=== PATIENT | male | born 1970 | race Caucasian/White ===

== ENCOUNTER 2022-12-30 12:54 | Emergency (ER) | payer OTHER ==
[~2022-12-30] VITALS: Ht 185.4 cm; Wt 91.0 kg
[2022-12-30] MEDS ORDERED: ACETAMINOPHEN 325MG TABLET PO ONE (14:00)
[2022-12-30] MEDS ORDERED: IBUPROFEN 600MG TABLET PO ONE (14:00)
[2022-12-30] MEDS ORDERED: IBUP-2028 MT (16:08)
[2022-12-30 16:18] VITALS: BP 147/87
[2022-12-31] MEDS ORDERED: IBUP-2028 MT (18:10)
== END 2022-12-30 16:27 | disposition home or self-care (01) ==
LOC: ER 13:05
DX: M79.10 Myalgia, unspecified site (principal); M54.50 Low back pain, unspecified; M54.6 Pain in thoracic spine; G89.29 Other chronic pain; E11.9 Type 2 diabetes mellitus without complications; I10 Essential (primary) hypertension
CPT/HCPCS: 99283

== ENCOUNTER 2022-12-31 12:49 | Emergency (ER) | payer MEDICAID, OTHER ==
[~2022-12-31] VITALS: Ht 182.9 cm; Wt 100.0 kg
[~2022-12-31 12:49] MED LIST: IBUP-2028 MT
[2022-12-31 12:53] VITALS: BP 142/83
[2022-12-31] MEDS ORDERED: METHOCARBAMOL 500MG TABLET PO ONE (14:00)
[2022-12-31] MEDS ORDERED: KETOROLAC 30MG/ML VIAL IM ONE (14:00)
[2022-12-31] MEDS ORDERED: ACETAMINOPHEN 325MG TABLET PO ONE (14:00)
[2022-12-31] MEDS ORDERED: IBUP-2028 MT (18:10)
== END 2022-12-31 19:10 | disposition home or self-care (01) ==
LOC: ER 12:49
DX: M79.10 Myalgia, unspecified site (principal); G89.29 Other chronic pain; E11.9 Type 2 diabetes mellitus without complications; I10 Essential (primary) hypertension; Z59.00 Homelessness unspecified
CPT/HCPCS: 82962; 96372; 99283; J1885; Z7610

== ENCOUNTER 2022-12-31 18:37 | Emergency (ER) | payer MEDICAID ==
[~2022-12-31] VITALS: Ht 188 cm; Wt 99.8 kg
[2022-12-31 19:13] VITALS: BP 96/59
[2022-12-31] MEDS ORDERED: CLONIDINE 0.1MG TABLET PO PRN (20:15)
[2022-12-31 21:04] LABS: BASOPHILS % 0.9 % (0.0-2.0); HEMOGLOBIN. 12.3 g/dL (14.0-18.0); LYMPHOCYTES % 25.1 % (20.0-50.0); MEAN CORPUSCULAR VOLUME 90.3 fL (80.0-94.0); MEAN PLATELET VOLUME 6.3 fl (7.4-10.4); MONOCYTES % 6.7 % (2.0-8.0); NEUTROPHILS % 65.3 % (40.0-76.0); PLATELET 407 x1000/uL (130-400); RED BLOOD CELL COUNT 3.99 mill/uL (4.7-6.1); RED CELL DISTRIBUTION WIDTH 14.3 % (11.6-14.6)
[2022-12-31 21:14] LABS: CHLORIDE 99 mEq/L (98-107)
== END 2023-01-01 00:34 | disposition left against medical advice (07) ==
LOC: ER 18:37
DX: Z53.21 Procedure and treatment not carried out due to patient leaving prior to being seen by health care provider (principal)
CPT/HCPCS: 36415; 80053; 84484; 85025; 93005; 99281

== ENCOUNTER 2023-01-01 14:21 | Emergency (ER) | payer MEDICAID, OTHER ==
[~2023-01-01] VITALS: Ht 188 cm; Wt 95.4 kg
[2023-01-01 14:28] VITALS: BP 90/63
[2023-01-01 14:47] LABS: BASOPHILS % 0.6 % (0.0-2.0); EOSINOPHILS % 1.6 % (0.0-5.0); HEMATOCRIT. 36.2 % (42.0-52.0); HEMOGLOBIN. 12.4 g/dL (14.0-18.0); LYMPHOCYTES % 22.2 % (20.0-50.0); MEAN CORPUSCULAR HEMOGLOBIN 30.9 pg (28.0-32.0); MEAN CORPUSCULAR VOLUME 89.7 fL (80.0-94.0); MEAN PLATELET VOLUME 6.3 fl (7.4-10.4); MONOCYTES % 5.6 % (2.0-8.0); PLATELET 406 x1000/uL (130-400); RED BLOOD CELL COUNT 4.03 mill/uL (4.7-6.1); RED CELL DISTRIBUTION WIDTH 13.9 % (11.6-14.6)
[2023-01-01 14:55] LABS: CHLORIDE 101 mEq/L (98-107)
[2023-01-01 14:57] LABS: INR 1.1; PROTHROMBIN TIME 11.6 sec (9.6-11.0)
== END 2023-01-01 22:35 | disposition left against medical advice (07) ==
LOC: ER 14:21
DX: Z53.21 Procedure and treatment not carried out due to patient leaving prior to being seen by health care provider (principal); I49.9 Cardiac arrhythmia, unspecified
CPT/HCPCS: 36415; 71045; 80053; 83880; 84484; 85025; 85610; 93005; 99281; Z7610

== ENCOUNTER 2023-01-04 19:18 | Emergency (ER) | payer OTHER ==
[~2023-01-04] VITALS: Ht 185.4 cm; Wt 87.0 kg
[2023-01-04 19:20] VITALS: BP 150/90
== END 2023-01-04 21:31 | disposition home or self-care (01) ==
LOC: ER 19:18
DX: R53.1 Weakness (principal); E11.9 Type 2 diabetes mellitus without complications; I10 Essential (primary) hypertension
CPT/HCPCS: 82962; 99283

== ENCOUNTER 2023-01-11 15:47 | Emergency (ER) | payer OTHER ==
[~2023-01-11] VITALS: Ht 185.4 cm; Wt 100.0 kg
[2023-01-11 15:49] VITALS: BP 143/92
[2023-01-11] MEDS ORDERED: IBUP-2028 MT (16:54)
[2023-01-11] MEDS ORDERED: KETOROLAC 60MG/2ML VIAL IM ONE (17:00)
== END 2023-01-11 17:12 | disposition home or self-care (01) ==
LOC: ER 15:47
DX: M25.512 Pain in left shoulder (principal); E11.9 Type 2 diabetes mellitus without complications; I10 Essential (primary) hypertension; Z68.20 Body mass index [BMI] 20.0-20.9, adult; W18.30XA Fall on same level, unspecified, initial encounter; Y93.89 Activity, other specified; Y92.89 Other specified places as the place of occurrence of the external cause; Y99.8 Other external cause status
CPT/HCPCS: 93005; 99283; J1885